=== PATIENT | female | born 2000 | race Caucasian/White ===

== ENCOUNTER 2024-09-05 05:44 | Observation (INO) | payer OTHER ==
[2024-09-05] MEDS: SODIUM CHLORIDE 0.9% 500 ML INFUS.BAG IV ONE (06:30)
[2024-09-05] MEDS: ACETAMINOPHEN 1000 MG/100 ML BAG IVPB ONE ×3 (06:30→16:01)
[2024-09-05 06:36] LABS: ABSOLUTE IMMATURE GRANULOCYTES 0.05 x10^3/uL (0.0-0.031); BASOPHILS # 0.04 x10^3/uL (0.01-0.08); EOSINOPHIL % 0.1 % (0.7-5.8); EOSINOPHILS # 0.01 x10^3/uL (0.04-0.36); MCHC 33.3 g/dl (32.2-35.5); MEAN CELL VOLUME 91.9 fl (79.4-94.8); MEAN PLT VOLUME 9.0 fl (9.4-12.3); MONOCYTE # 0.97 x10^3/uL (0.24-0.86); MONOCYTE % 6.4 % (4.7-12.5); RDW 12.2 % (12.1-16.5)
[2024-09-05 06:44] LABS: INR 1.15 (0.83-1.09); PROTHROMBIN TIME (PATIENT) 12.6 SEC (9.7-13.0)
[2024-09-05 06:46] LABS: ACTIVATED PTT 28.3 SECONDS (25.2-36.5)
[2024-09-05 06:55] LABS: CO2 24.0 mmol/L (21-32); GLUCOSE,RANDOM 129.0 mg/dL (74-106)
[2024-09-05 06:58] LABS: CREATININE 0.8 mg/dL (0.55-1.3); SGOT/AST 22.0 U/L (15-37); SGPT/ALT 27.0 U/L (13-61)
[2024-09-05 06:59] LABS: TOT PROT 7.6 g/dl (6.4-8.2)
[2024-09-05 07:01] LABS: ALK PHOS 83.0 U/L (45-117)
[2024-09-05] MEDS ORDERED: PIPERACILLIN/TAZOB 4.5 GM 4.5 GM/100 ML BAG IVPB ONE (08:24)
[2024-09-05] MEDS ORDERED: MORPHINE SULFATE 2 MG/ML SYRINGE ONE (08:24)
[2024-09-05] MEDS: PIPERACILLIN/TAZOB 4.5 GM 4.5 GM in DEXTROSE 5%-WATER 100 ML IVPB ONE (08:37)
[2024-09-05] MEDS: SODIUM CHLORIDE 1,000 ML IV SCH (09:00)
[2024-09-05 09:28] LABS: EPI CELLS 35 /uL (0-25.1); HYALINE CASTS 1 /uL (0-3.1); URINE APPEARANCE CLEAR; URINE BACTERIA 27 /uL (0-1359); URINE BILIRUBIN NEGATIVE (NEGATIVE); URINE COLOR YELLOW; URINE GLUCOSE (UA) NEGATIVE (NEGATIVE); URINE KETONE NEGATIVE (NEGATIVE); URINE LEUK ESTERASE NEGATIVE (NEGATIVE); URINE NITRITE NEGATIVE (NEGATIVE); URINE PROTEIN NEGATIVE (NEGATIVE); URINE RBC 25 /uL (0-23.9); URINE UROBILINOGEN 0.2 mg/dL (0.2-1.0)
[2024-09-05] MEDS ORDERED: KETOROLAC TROMETHAMINE 15 MG/ML VIAL IVPUSH PRN (09:44)
[2024-09-05] MEDS ORDERED: ONDANSETRON 4 MG/2 ML VIAL IVPB PRN ×3 (09:45→12:33)
[2024-09-05] MEDS ORDERED: ACETAMINOPHEN 1000 MG/100 ML BAG IVPB PRN (09:45)
[2024-09-05 09:46] LABS: URINE WBC 72.6 /uL (0-25.8)
[2024-09-05] MEDS ORDERED: LIDOCAINE HCL/PF 2% SDV 5ML VIAL ONE (10:04)
[2024-09-05] MEDS ORDERED: PROPOFOL 20 ML ONE (10:04)
[2024-09-05] MEDS ORDERED: SUCCINYLCHOLINE CHLORIDE 200 MG/10 ML SYRINGE ONE (10:05)
[2024-09-05] MEDS ORDERED: ROCURONIUM BROMIDE 50 MG/5 ML SYRINGE ONE (10:05)
[2024-09-05] MEDS ORDERED: MIDAZOLAM HCL 2 MG/2 ML SINGLE DOSE VIAL ONE (10:05)
[2024-09-05] MEDS ORDERED: BUPIVACAINE HCL/PF 0.25% (2.5MG/ML) 10 ML VIAL ONE (10:32)
[2024-09-05] MEDS ORDERED: DEXAMETHASONE SOD PHOSPHATE 4 MG/1 ML VIAL ONE (10:52)
[2024-09-05] MEDS ORDERED: PROMETHAZINE HCL 25 MG/1 ML VIAL IVPB PRN ×2 (11:39→12:33)
[2024-09-05] MEDS ORDERED: LACTATED RINGERS SOLUTION 1,000 ML IV SCH (11:45)
[2024-09-05] MEDS ORDERED: KETOROLAC TROMETHAMINE 30 MG/1 ML VIAL ONE (11:45)
[2024-09-05] MEDS ORDERED: ONDANSETRON 4 MG/2 ML VIAL ONE (11:45)
[2024-09-05] MEDS: BUPIVACAINE HCL/PF 0.25% (2.5MG/ML) 10 ML VIAL IJ ONE (11:57)
[2024-09-05] MEDS ORDERED: SUGAMMADEX SODIUM 200 MG/2 ML VIAL ONE (11:58)
[2024-09-05] MEDS: LACTATED RINGERS SOLUTION 1,000 ML IV SCH ×2 (12:37→16:01)
[2024-09-05 13:35] LABS: HIV INTERPRETATION NEGATIVE (NEGATIVE)
[2024-09-05 13:36] LABS: HCV DIAGNOSTIC IN-HOUSE W/RFLX NON-REACTIVE (NONREACTIVE)
[2024-09-05] MEDS ORDERED: PIPERACILLIN/TAZOB 3.375 GM 3.375 GM in DEXTROSE 5%-WATER - 50 ML IVPB SCH (15:00)
[2024-09-05 18:03] VITALS: BMI 31.8
[2024-09-05] MEDS: ACETAMINOPHEN 1000 MG/100 ML BAG IVPB PRN (19:35)
[2024-09-05] MEDS: SIMETHICONE 80 MG TAB.CHEW (FP) PO PRN (23:53)
[2024-09-06] MEDS: KETOROLAC TROMETHAMINE 15 MG/ML VIAL IVPUSH PRN (01:39)
[2024-09-06 03:24] VITALS: RESP 16
[2024-09-06 07:27] LABS: MCHC 32.0 g/dl (32.2-35.5); MEAN CELL VOLUME 94.3 fl (79.4-94.8); MEAN PLT VOLUME 9.7 fl (9.4-12.3); RDW 12.5 % (12.1-16.5)
[2024-09-06 07:44] LABS: CO2 26.0 mmol/L (21-32); GLUCOSE,RANDOM 142.0 mg/dL (74-106)
[2024-09-06 07:47] LABS: CREATININE 0.7 mg/dL (0.55-1.3); SGOT/AST 16.0 U/L (15-37); SGPT/ALT 21.0 U/L (13-61)
[2024-09-06 07:48] LABS: TOT PROT 6.3 g/dl (6.4-8.2)
[2024-09-06 07:50] LABS: ALK PHOS 67.0 U/L (45-117)
[2024-09-06 16:31] VITALS: BP 100/59; PULSE 58; TEMP 97.9
== END 2024-09-06 18:15 | disposition home or self-care (01) ==
LOC: JER 05:44 → INTOOBSV 08:23 → UNDOADMOB 08:23 → JERBED 08:23 → J7W 14:17
PROVIDERS: ADMIT Student in an Organized Health Care Education/Training Program; ATTEND Nurse Practitioner Family
PROC: 3E0333Z Introduction of Anti-inflammatory into Peripheral Vein, Percutaneous Approach (ICD-10-PCS; 2024-09-05)
PROC: 3E0337Z Introduction of Electrolytic and Water Balance Substance into Peripheral Vein, Percutaneous Approach (ICD-10-PCS; 2024-09-05)
PROC: 3E03329 Introduction of Other Anti-infective into Peripheral Vein, Percutaneous Approach (ICD-10-PCS; 2024-09-05)
PROC: 0DTJ4ZZ Resection of Appendix, Percutaneous Endoscopic Approach (ICD-10-PCS; 2024-09-05)
PROC: 3E033NZ Introduction of Analgesics, Hypnotics, Sedatives into Peripheral Vein, Percutaneous Approach (ICD-10-PCS; principal; 2024-09-05 10:00)
DX: K35.80 Unspecified acute appendicitis (principal)
CPT/HCPCS: 36415; 74177-TC; 76830-TC; 80053; 81003; 83690; 83735; 84100; 84443; 84703; 85025; 85027; 85610; 85730; 86803; 86850; 86900; 86901; 87086; 87389; 88304-TC; 93005; 93010; 94760; 96361; 96365; 96375; 96376; 99285-25; G0378; Q9967